=== PATIENT | female | born 2000 | race Caucasian/White ===

== ENCOUNTER 2022-10-03 11:07 | Emergency (ER) | payer OTHER ==
[~2022-10-03] VITALS: Ht 157.5 cm; Wt 66.2 kg
[2022-10-03 11:18] VITALS: BP 116/75
--- NOTE | 2022-10-03 11:35 | NUR ---
PT AMBULATED TO ER BED 3
--- NOTE | 2022-10-03 11:37 | NUR ---
DR CAPPS AT BEDSIDE EVALUATING PT
[2022-10-03 12:17] LABS: APPEARANCE,URINE CLOUDY (CLEAR); BILIRUBIN,URINE NEGATIVE (NEGATIVE); BLOOD, URINE 3+ (NEGATIVE); COLOR,URINE RED (YELLOW); LEUKOCYTE ESTERASE ,URINE TRACE (NEGATIVE); NITRITE, URINE POSITIVE (NEGATIVE); UGLUCOSE NEGATIVE (NEGATIVE)
[2022-10-03 12:32] LABS: RBC,URINE 50-80 /HPF (0-5)
[2022-10-03 13:26] LABS: BASOPHILS % (AUTO) 0.4 % (0.0-2.0); EOSINOPHILS # (AUTO) 0.2 K/uL (0-0.4); EOSINOPHILS % (AUTO) 2.6 % (0.0-4.0); LYMPHOCYTES # (AUTO) 1.8 K/uL (2.5-16.5); LYMPHOCYTES % (AUTO) 30.8 % (20.5-51.1); MEAN CORPUSCULAR HEMOGLOBIN 26 pg (27-31); MEAN CORPUSCULAR HGB CONC 32 g/dL (33-37); MEAN CORPUSCULAR VOLUME 80.8 fL (80-94); MONOCYTES # (AUTO) 0.5 K/uL (0.8-1.0); MONOCYTES % (AUTO) 8.1 % (1.7-9.3); NEUTROPHILS # (AUTO) 3.4 K/uL (1.8-7.7); NEUTROPHILS % (AUTO) 58.1 % (42.2-75.2); PLATELET COUNT (AUTO) 244 K/uL (140-450); RED BLOOD CELL COUNT(AUTO) 4.58 MIL/uL (4.20-5.40); RED CELL DISTRIBUTION WIDTH 14.2 % (11.6-13.7); WHITE BLOOD COUNT (AUTO) 5.8 K/uL (4.8-10.8)
--- NOTE | 2022-10-03 14:05 | NUR ---
Patient discharged with v/s stable. Written and verbal after care instructions ABOUT MISCARRIAGE AND FIRST TRIMESTER OF given and explained. Patient verbalized understanding. Ambulatory with steady gait. All questions addressed prior to discharge. Advised to follow up with PMD.
== END 2022-10-03 14:05 | disposition home or self-care (01) ==
LOC: MED 11:07
DX: N93.9 Abnormal uterine and vaginal bleeding, unspecified (principal)
CPT/HCPCS: 36415; 76817; 81001; 84702; 85025; 86900; 86901; 87086; 99284; Q0092

== ENCOUNTER 2023-09-09 11:38 | Day surgery (SDC) | payer OTHER ==
[~2023-09-09] VITALS: Ht 165.1 cm; Wt 78.5 kg
[~2023-09-09 11:38] MED LIST: HYDROmorphone PFS 2 MG/ML SYR IVP PRN
[2023-09-09] MEDS ORDERED: fentaNYL citrate 0.05 MG/ML VIAL ONE (13:24)
[2023-09-09] MEDS ORDERED: MIDAZOLAM 2 MG/2 ML VIAL ONE (13:24)
[2023-09-09] MEDS ORDERED: FAMOTIDINE 20 MG/2 ML VIAL ONE (13:25)
[2023-09-09] MEDS ORDERED: LIDOCAINE/EPI MPF 1%1:200000 30 ML VIAL INJ ONE (13:27)
[2023-09-09] MEDS ORDERED: BUPIVACAINE MPF 0.25% 10 ML VIAL INJ ONE (13:27)
[2023-09-09] MEDS ORDERED: SEVOFLURANE 250 ML BTL INH ONE (13:30)
[2023-09-09] MEDS ORDERED: ROCURONIUM 50 MG/5 ML VIAL IV ONE (13:30)
[2023-09-09] MEDS ORDERED: GLYCOPYRROLATE 0.2 MG/ML VIAL ONE (13:30)
[2023-09-09] MEDS ORDERED: NEOSTIGMINE 1:1000 10 MG/10 ML VIAL ONE (13:30)
[2023-09-09] MEDS ORDERED: ONDANSETRON 4 MG/2 ML VIAL ONE (14:01)
[2023-09-09] MEDS ORDERED: DEXAMETHASONE 4 MG/ML VIAL ONE (14:01)
[2023-09-09] MEDS ORDERED: PROPOFOL 200 MG/20 ML VIAL IV ONE (14:01)
[2023-09-09] MEDS ORDERED: KETOROLAC 30 MG/ML VIAL ONE (14:02)
[2023-09-09] MEDS ORDERED: MEPERIDINE 50 MG/ML SYR ONE (15:09)
== END 2023-09-09 17:50 | disposition home or self-care (01) ==
LOC: MDS 11:38 → MMU 11:40 → MDS 17:50
PROVIDERS: ATTEND Obstetrics & Gynecology
DX: N92.0 Excessive and frequent menstruation with regular cycle (principal); N80.9 Endometriosis, unspecified; D25.2 Subserosal leiomyoma of uterus; N94.6 Dysmenorrhea, unspecified; D25.0 Submucous leiomyoma of uterus; R10.2 Pelvic and perineal pain
CPT/HCPCS: 36415; 58558; 58662; 86886; 86900; 86901; J1100; J1885; J2001; J2175; J2250; J2405; J2704; J2710; J3010; J3490; J7120

== ENCOUNTER 2024-04-14 19:24 | Emergency (ER) | payer OTHER ==
[~2024-04-14] VITALS: Ht 165.1 cm; Wt 83.9 kg
[2024-04-14 19:26] VITALS: BP 104/60; PULSE 102; RESP 16; TEMP 98.1; O2SAT 98
[2024-04-14] MEDS ORDERED: AMOX500C25 PO (20:01)
[2024-04-14 20:04] VITALS: BP 124/55; PULSE 107; RESP 18; TEMP 98.2; O2SAT 98
== END 2024-04-14 20:04 | disposition home or self-care (01) ==
LOC: MED 19:24
DX: O99.511 Diseases of the respiratory system complicating pregnancy, first trimester (principal); Z3A.13 13 weeks gestation of pregnancy; Z88.1 Allergy status to other antibiotic agents; Z79.899 Other long term (current) drug therapy
CPT/HCPCS: 99283

== ENCOUNTER 2024-06-21 15:28 | Emergency (ER) | payer OTHER ==
[~2024-06-21] VITALS: Ht 165.1 cm; Wt 89.9 kg
[~2024-06-21 15:28] MED LIST changes: +AMOX500C25 PO; -HYDROmorphone PFS 2 MG/ML SYR IVP PRN
[2024-06-21 15:35] VITALS: BP 107/59; PULSE 97; RESP 17; TEMP 98.6; O2SAT 100
[2024-06-21] MEDS ORDERED: DIPH25TA53 PO (16:49)
[2024-06-21 16:56] VITALS: BP 112/62; PULSE 97; RESP 16; TEMP 98.1; O2SAT 100
== END 2024-06-21 16:56 | disposition home or self-care (01) ==
LOC: MED 15:28
DX: R21 Rash and other nonspecific skin eruption (principal); Z79.899 Other long term (current) drug therapy; Z88.1 Allergy status to other antibiotic agents
CPT/HCPCS: 99282